=== PATIENT | male | born 1980 | race Caucasian/White ===

== ENCOUNTER 2019-07-12 15:51 | Emergency (ER) | payer OTHER ==
[2019-07-12] MEDS ORDERED: ACETAMINOPHEN 325 MG TABLET (FP) PO ONE (16:14)
[2019-07-12] MEDS ORDERED: DIPHTH,PERTUSS(ACELL),TET 0.5 ML DISP.SYRIN IM ONE ×2 (16:14→16:18)
--- NOTE | 2019-07-12 16:14 | PDOC ---
Rapid Medical Evaluation Chief Complaint: Pain Time Seen by Provider: 07/12/19 16:09 Medical Evaluation: Allergies Allergy/AdvReac Type Severity Reaction Status Date / Time No Known Allergies Allergy Verified 01/16/14 22:39 07/12/19 16:11 Pt presents for evaluation of R foot pain. A metal grate fell on his foot at work today. Pt states there was blood on his sock. States his 1st and second R toes hurt. Last tetanus 7 years ago. Exam: abrasion noted just inferior to the nail bed without involving the R 1st toe nail. Swelling of 1st and 2nd toes noted. TTP Orders: X-ray, Tylenol, Tetanus Pt to proceed to the ER for further evaluation Discharge Disposition - Diagnosis Toe injury Qualifiers: Encounter type: initial encounter Laterality: right Qualified Code(s): S99.921A - Unspecified injury of right foot, initial encounter - Referrals - Patient Instructions - Post Discharge Activity
[2019-07-12 16:15] VITALS: BP 138/79; PULSE 75; TEMP 98.5; BMI 31.0
[2019-07-12] MEDS ORDERED: ACETAMINOPHEN 500 MG TABLET (FP) ONE (16:18)
--- NOTE | 2019-07-12 16:39 | PDOC ---
History of Present Illness - General Chief Complaint: Pain Stated Complaint: R/O FX TOES Time Seen by Provider: 07/12/19 16:09 History Source: Patient Exam Limitations: No Limitations - History of Present Illness Initial Comments: 07/12/19 16:33 Patient is a 38-year-old male who presents to the ED with complaint of right great toe injury that he sustained about 1 hour ago. He states while at work, a coworker accidentally dropped a 150 pound grate on his foot. He took his shoe off and noticed that there was some blood on his sock. The patient states that he has been having difficulty walking since. His last tetanus booster was at least 7 years ago. Past History - Past Medical History Allergies/Adverse Reactions: Allergies Allergy/AdvReac Type Severity Reaction Status Date / Time No Known Allergies Allergy Verified 07/12/19 16:12 - Psycho Social/Smoking Cessation Hx Smoking History: Never smoked Hx Alcohol Use: No Drug/Substance Use Hx: No Substance Use Type: Alcohol Review of Systems - Review of Systems Comments:: 07/12/19 16:34 - Review of Systems Able to Perform ROS?: Yes Constitutional: No: Fever, Chills, Loss of Appetite, Night Sweats, Weakness Respiratory: No: Cough, Shortness of Breath, Wheezing, Sputum Production Cardiac (ROS): No: Chest Pain, Chest Tightness, Palpitations, Irregular Heart Beat, Edema ABD/GI: No: Nausea, Vomiting, Abdominal Pain, Diarrhea Musculoskeletal: No: Muscle Pain, Back Pain, Joint Pain, Muscle Weakness, Neck Pain; Right great toe pain Integumentary: No: Lesions, Rash Neurological: No: Headache, Numbness, Tingling, Weakness, Speech Difficulties *Physical Exam - Vital Signs Last Vital Signs Temp Pulse Resp BP Pulse Ox 98.5 F 75 18 138/79 99 07/12/19 16:12 07/12/19 16:12 07/12/19 16:12 07/12/19 16:12 07/12/19 16:12 - Physical Exam 07/12/19 16:35 - Physical Exam General Appearance: Nourished, Appropriately Dressed, No Distress Neck: Supple, No Lymphadenopathy (R), No Lymphadenopathy (L), No Rigidity, No Decreased range of motion Respiratory/Chest: Lungs Clear, Normal Breath Sounds. No Respiratory Distress, No Accessory Muscle Use Cardiovascular: Regular Rhythm, Regular Rate, S1, S2 Extremity: Normal Capillary Refill, Normal Inspection; Right great toe with dried blood around the base of the nail without any laceration appreciated. No subungual hematoma appreciated. Sensation intact distally. Brisk capillary refill distally. Tenderness to palpation to the distal aspect of the great toe. Minimal tenderness to the right second toe but patient able to move it freely. Integumentary: Normal Color, Dry. No Rash Neurologic: tool inspector II-XII NML intact, Fully Oriented, Alert, Normal Mood/Affect, Normal Response ED Treatment Course - Medications Given in the ED: ED Medications Discontinued Medications Generic Name Dose Route Start Last Admin Trade Name Davidq PRN Reason Stop Dose Admin Acetaminophen 1,000 mg 07/12/19 16:14 07/12/19 16:22 Tylenol - PO 07/12/19 16:15 1,000 mg ONCE ONE Administration Diphtheria/Tetanus/Acell Pertussis 0.5 ml 07/12/19 16:14 07/12/19 16:23 Boostrix - IM 07/12/19 16:15 0.5 ml .ONCE ONE Administration Medical Decision Making - Medical Decision Making 07/12/19 16:36 Assessment: Patient is a 38-year-old male with a right foot crush injury. Plan: -Right foot x-ray was performed and read as negative by radiology. -Tylenol and Boostrix given in the ED -Patient has been made aware that his right foot x-ray is negative for acute pathology. He can ice and elevate his foot to help with soreness. He can take ibuprofen for pain and swelling. He should follow-up with his primary doctor or orthopedics for repeat evaluation. Orthopedic referral given. Discharge - Discharge Information Problems reviewed: Yes Clinical Impression/Diagnosis: Toe injury Qualifiers: Encounter type: initial encounter Laterality: right Qualified Code(s): S99.921A - Unspecified injury of right foot, initial encounter Crushing injury of great toe of right foot Qualifiers: Encounter type: initial encounter Qualified Code(s): S97.111A - Crushing injury of right great toe, initial encounter Condition: Stable Disposition: HOME - Follow up/Referral Referrals: Dutch Rahman MD [Staff Physician] - 1 week - Patient Discharge Instructions Patient Printed Discharge Instructions: DI for Crush Injury Additional Instructions: Ice and elevate your right foot to help with swelling and pain. You can take ibuprofen for pain. You should follow-up with your primary care doctor or orthopedics within 1 week for repeat evaluation. - Post Discharge Activity Work/Back to School Note: Back to Work
== END 2019-07-12 16:42 | disposition home or self-care (01) ==
LOC: JERFT 15:51
PROC: 3E0234Z Introduction of Serum, Toxoid and Vaccine into Muscle, Percutaneous Approach (ICD-10-PCS; principal; 2019-07-12)
DX: S97.111A Crushing injury of right great toe, initial encounter (principal); W20.8XXA Other cause of strike by thrown, projected or falling object, initial encounter; Y93.89 Activity, other specified; Y92.69 Other specified industrial and construction area as the place of occurrence of the external cause
CPT/HCPCS: 73630-TC-RT-FY; 90715; 99281-25

== ENCOUNTER 2022-01-21 21:24 | Emergency (ER) | payer OTHER ==
[2022-01-21 21:33] VITALS: RESP 19; BMI 29.5
[2022-01-21 22:45] LABS: HEMATOCRIT 39.2 % (35.4-49); HEMOGLOBIN 14.1 GM/dL (11.7-16.9); MCHC 35.8 g/dl (32.0-35.9); MEAN PLT VOLUME 6.5 fl (7.5-11.1); PLATELET COUNT 210 10^3/uL (134-434); RBC 4.13 M/mm3 (4.00-5.60); RDW 13.6 % (11.9-15.9); WHITE BLOOD COUNT 8.8 K/mm3 (4.0-10.0)
[2022-01-21 23:22] LABS: CALCIUM 9.2 mg/dL (8.5-10.1)
[2022-01-21 23:23] LABS: ALBUMIN 4.1 g/dl (3.4-5.0); BLOOD UREA NITROGEN 12.3 mg/dL (7-18)
[2022-01-21 23:27] LABS: BILIRUBIN,TOTAL 0.8 mg/dL (0.2-1); TOT PROT 7.4 g/dl (6.4-8.2)
[2022-01-22 01:22] VITALS: BP 131/80; PULSE 61; TEMP 98.6
== END 2022-01-22 01:24 | disposition home or self-care (01) ==
LOC: JER 21:24
DX: R07.9 Chest pain, unspecified (principal)
CPT/HCPCS: 36415; 71046-TC-FY; 80053; 84484; 85027; 93005; 93010; 99285-25

== ENCOUNTER 2023-06-18 16:54 | Emergency (ER) | payer OTHER ==
[2023-06-18 17:08] VITALS: BP 141/95; PULSE 83; RESP 18; TEMP 98.9; BMI 31.0
[2023-06-18] MEDS ORDERED: IBUPROFEN 400 MG TABLET (FP) PO ONE (17:28)
== END 2023-06-18 18:35 | disposition home or self-care (01) ==
LOC: FER 16:54
DX: R07.81 Pleurodynia (principal)
CPT/HCPCS: 99283-25

== ENCOUNTER 2025-02-04 00:52 | Emergency (ER) | payer OTHER ==
[2025-02-04 01:22] VITALS: BP 133/95; PULSE 93; RESP 18; TEMP 98.6; BMI 31.1
[2025-02-04] MEDS ORDERED: AMOX TR/POT CLAV 500MG/125MG TABLETS (FP) ONE (02:20)
[2025-02-04] MEDS: AMOX TR/POT CLAV 500MG/125MG TABLETS (FP) PO ONE (02:21)
== END 2025-02-04 02:26 | disposition home or self-care (01) ==
LOC: FER 00:52
PROC: 0HQ1XZZ Repair Face Skin, External Approach (ICD-10-PCS; principal; 2025-02-04)
DX: S02.85XA Fracture of orbit, unspecified, initial encounter for closed fracture (principal); S02.2XXA Fracture of nasal bones, initial encounter for closed fracture; S01.81XA Laceration without foreign body of other part of head, initial encounter; Y04.8XXA Assault by other bodily force, initial encounter
CPT/HCPCS: 70450-TC; 70486-TC; 99284-25